=== PATIENT | male | born 1960 | race Caucasian/White ===

== ENCOUNTER 2023-11-15 16:33 | Emergency (ER) | payer BC, SELFPAY ==
--- NOTE | 2023-11-15 16:40 | ED.GENADULT ---
HPI - General Adult General Date Seen: 11/15/23 Chief complaint: Urogenital Problems, Male Stated complaint: Pain while urinating, fever Time Seen by Provider: 11/15/23 16:35 History of Present Illness HPI narrative: Very pleasant 63-year-old gentleman with a history of type 2 diabetes, distant history of lumbar spine injury with some intermittent low back pain, but otherwise healthy. No known history of prostate cancer or other malignancy. No active chemotherapy or immunosuppression. He presents to the ER today with symptoms of dysuria ongoing for the past 2-3 days now with developing urinary frequency (up to the bathroom every 30-60 minutes overnight for the past 12-18 hours) as well as some bilateral flank pain. He had fever and chills overnight with a T-max of 100.4? measured by a ear thermometer by his . No systemic illness. No body aches. No nausea or vomiting. No weakness. No cough. No chest pain. No shortness of breath. No sore throat. 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 Related Data Previous Rx's Medication Instructions Recorded cephalexin 500 mg capsule 500 mg PO BID #14 caps 11/15/23 phenazopyridine 100 mg tablet 100 mg PO TID PRN pain #14 tabs 11/15/23 (Pyridium) potassium chloride 20 mEq 20 meq PO DAILY #7 tabs 11/15/23 tablet,extended release Allergies Allergy/AdvReac Type Severity Reaction Status Date / Time lisinopril AdvReac Severe Cough Verified 11/15/23 16:45 Exam Narrative: Exam Narrative: Constitutional: Appears well-developed and well-nourished. Alert. Conversant. Non toxic. HENT: Head: Atraumatic. Nose: Nose normal. Mouth/Throat: Oral mucosa is clear and moist. no trismus. Eyes: Conjunctivae normal. EOM normal. Pupils equal, round, and reactive to light. No scleral icterus. Neck: Normal range of motion. Neck supple. No tracheal deviation present. Cardiovascular: Normal rate, regular rhythm. No gallop. No friction rub. No murmur heard. Symmetric radial artery pulses Pulmonary/Chest: Effort normal. No stridor. No respiratory distress. No wheezes. No rales. No rhonchi . No tenderness. Abdominal: Soft. Bowel sounds normal. No distension. No mass. No tenderness. No rebound. No guarding. Bilateral mild CVA tenderness. No suprapubic tenderness. Musculoskeletal: RUE: Normal range of motion. No tenderness. No deformity LUE: Normal range of motion. No tenderness. No deformity RLE: Normal range of motion. No edema. No tenderness. No deformity LLE: Normal range of motion. No edema. No tenderness. No deformity Lymph: No cervical adenopathy. Neurological: Alert and oriented to person, place, and time. Normal strength. CN II-VII intact. No sensory deficit. GCS eye subscore is 4. GCS verbal subscore is 5. GCS motor subscore is 6. Normal coordination Skin: Skin is warm and dry. No rash noted. No pallor. Normal capillary refill. Psychiatric: Normal mood. Normal affect. Const: Vital Signs, click to edit/add: Vital Signs - 24 hr 11/15/23 16:41 Temperature 97.3 F L Pulse Rate [Right Pulse Oximeter] 92 Respiratory Rate 16 Blood Pressure [Ri ght Upper Arm] 112/72 Pulse Oximetry 94 Oxygen Delivery Me thod Room Air Course Vital Signs Vital signs: Initial Vital Signs Temperature 97.3 F L 11/15/23 16:41 Temperature Source Temporal Artery Scan 11/15/23 16:41 Pulse Rate 92 11/15/23 16:41 Pulse Rhythm Regular 11/15/23 16:41 Pulse Strength 3+ Normal 11/15/23 16:41 Respiratory Rate 16 11/15/23 16:41 Blood Pressure 112/72 11/15/23 16:41 Blood Pressure Mean 85 11/15/23 16:41 Blood Pressure Position Sitting 11/15/23 16:41 Pulse Oximetry 94 11/15/23 16:41 Oxygen Delivery Method Room Air 11/15/23 16:41 Vital Signs Temperature 97.3 F L 11/15/23 16:41 Pulse Rate 92 11/15/23 16:41 Respiratory Rate 16 11/15/23 16:41 Blood Pressure 112/72 11/15/23 16:41 Pulse Oximetry 94 11/15/23 16:41 Oxygen Delivery Method Room Air 11/15/23 16:41 Temperature 97.3 F L 11/15/23 16:41 Pulse Rate 92 11/15/23 16:41 Respiratory Rate 16 11/15/23 16:41 Blood Pressure 112/72 11/15/23 16:41 Pulse Oximetry 94 11/15/23 16:41 Oxygen Delivery Method Room Air 11/15/23 16:41 Medications Administered Medications: Discontinued Medications Generic Name Dose Route Start Last Admin Trade Name Denq PRN Reason Stop Dose Admin Cephalexin HCl 500 mg 11/15/23 17:06 11/15/23 17:18 Cephalexin 500 Mg Capsule PO 11/15/23 17:07 500 mg ONCE ONE Administration Potassium Chloride 40 meq 11/15/23 17:38 11/15/23 18:05 Potassium Chloride 10 Meq Capsule Er PO 11/15/23 17:39 40 meq ONCE ONE Administration Medical Decision Making MDM Narrative Medical decision making narrative: This patient presents for evaluation of dysuria, urinary urgency and frequency as well as fever. This clinically is consistent with a urinary tract infection. Urinalysis confirms the infection. Given fever and associated back pain we did do a workup to look for possible comp of UTI such as pyelonephritis or associated kidney stone or renal failure. Fortunately stone protocol CT is reassuring and laboratory workup is reassuring. There is no clinical evidence of pyelonephritis, appendicitis, colitis, diverticulitis or any intraabdominal catastrophe. No obstructing kidney stones. No signs of urosepsis. Incidental note is made of hypokalemia on his labs. Supplemented here in the ER and will put him on a 7 day course of potassium and have him recheck with PCP next week to make sure his potassium is coming up. Unclear what is causing it, possibly chlorthalidone? The patient will be started on cephalexin 500 mg b.i.d. for 7 days for the infection. Urine culture pending Return if increasing pain, vomiting, fever, or inability to tolerate the oral antibiotic. Follow up with primary physician is indicated if not improving in 2-3 days. Lab Data Labs: Lab Results 11/15/23 11/15/23 Range/Units 16:48 17:05 WBC 10.88 (4.50-11.00) K/uL RBC 4.82 (4.30-5.90) m/uL Hgb 14.6 (13.5-17.5) gm/dL Hct 42.1 (37.0-53.0) % MCV 87 (80-100) fL MCH 30 (26-34) pg MCHC 35 (32-36) gm/dL RDW Coeff of Fahad 12.1 (11.5-15.5) % Plt Count 152 (140-440) K/uL Neut % (Auto) 78.0 H (42.0-72.0) % Lymph % (Auto) 11.8 L (20-44) % [place] % (Auto) 7.9 (0.0-11.0) % Eos % (Auto) 1.7 (0.0-7.0) % Baso % (Auto) 0.4 (0.0-3.0) % Neut # (Auto) 8.50 H (1.7-7.0) K/uL Lymph # (Auto) 1.30 (0.90-2.90) K/uL [place] # (Auto) 0.90 (0.00-0.90) K/UL Eos # (Auto) 0.19 (0.00-0.50) K/uL Baso # (Auto) 0.04 (0.00-0.30) K/uL Abs Immat Gran (auto) 0.02 (0.00-0.30) K/uL Imm/Tot Granulo (auto) 0.2 % Sodium 137 (135-149) mmol/L Potassium 2.9 L* (3.6-5.1) mmol/L Chloride 102 (96-114) mmol/L Carbon Dioxide 28 (20-32) mmol/L Anion Gap 7 (7-15) mEq/L BUN 21 (7-30) mg/dL Creatinine 1.1 (0.5-1.5) mg/dL Estimated Creat Clear 76.42 Estimated GFR 76 ml/min Glucose 138 H (60-115) mg/dL Calcium 9.4 (8.4-10.6) mg/dL Urine Color Yellow (Yellow) Urine Appearance Clear (Clear) Urine pH 5.5 (5.0-8.5) Ur Specific [place] 1.010 (1.000-1.030) Urine Protein Negative (Negative) Urine Glucose (UA) 3+ A (Negative) Urine Ketones Negative (Negative) Urine Blood Negative (Negative) Urine Nitrite Negative (Negative) Urine Bilirubin Negative (Negative) Urine Urobilinogen 0.2 (0.2-1.0) Ur Leukocyte Esterase Negative (Negative) Urine RBC 2-5 A (0-2) Urine WBC 5-10 A (0-5) Ur Squamous Epith Cells Few (None-Few) Urine Bacteria Few A (None) Imaging Data CT scan - abdomen: Attestation: I have reviewed the pertinent imaging results. Radiologist's impression: IMPRESSION: No acute intra-abdominal/pelvic abnormality including obstructive uropathy. Punctate nonobstructing bilateral renal stones. Moderate colonic stool burden. Discharge Plan Discharge Clinical Impression: Urinary tract infection, Acute hypokalemia Patient Disposition: Home, Self-Care Condition: Stable Instructions: Urinary Tract Infection in Men (DC), Hypokalemia (ED) Additional Instructions: As we discussed, please come back to the ER right away if you have worsening of your condition-especially if you have high fever, vomiting or dehydration, weakness, body aches, or if you have any other concerns. It will typically take 1-2 days for the antibiotics to start treating your infection. We will contact you if your urine culture grows and unusual kind of bacteria or if we need to change her antibiotics. Please follow-up with your regular doctors office (or come back to the ER) next week to have repeat labs and to recheck your potassium level. Your potassium was mildly low today. We will supplement this with a couple of days of potassium tablets. You can also try eating potassium rich foods such as bananas, avocados, tomato juice, or potato skins. Prescriptions: New cephalexin 500 mg capsule 500 mg PO BID Qty: 14 0RF phenazopyridine [Pyridium] 100 mg tablet 100 mg PO TID PRN (Reason: pain) Qty: 14 0RF potassium chloride 20 mEq tablet extended release 20 meq PO DAILY Qty: 7 2RF Follow Up/Referrals: Selvin Camacho MD [Primary Care Provider] - Stand Alone Forms: [employer] Info Instructions
[2023-11-15 16:41] VITALS: BP 112/72; PULSE 92; RESP 16; TEMP 36.3; O2SAT 94; BMI 39.7
[2023-11-15 16:52] LABS: Bilirubin Urine Negative (Negative); Blood Urine Negative (Negative); Color Urine Yellow (Yellow); Glucose Urine 3+ (Negative); Ketones Urine Negative (Negative); Leukocyte Esterase Urine Negative (Negative); Nitrite Urine Negative (Negative); Protein Urine Negative (Negative); Urobilinogen Urine 0.2 (0.2-1.0); pH Urine 5.5 (5.0-8.5)
--- NOTE | 2023-11-15 16:52 | CT_ITS ---
Patient: RYAN ARIAS Facility:?[facility] Patient ID:?[id number] Site Patient ID:?[id number]. Site :?[id number] Study:?CT-Abdomen/Pelvis W/O-11/15/2023 5:19:28 PM Ordering Physician:MARCY Final Report: INDICATION: Bilateral flank pain, pain with urinating. TECHNIQUE: CT abdomen and pelvis without contrast. COMPARISON: None. FINDINGS: Lower chest: Scattered atelectasis. Liver: Normal in size and attenuation. No suspicious masses. Gallbladder and bile ducts: No stones or inflammation. No biliary dilatation. Pancreas: Unremarkable. No mass or inflammation. Spleen: Normal in size. No masses. Adrenal glands: Normal in size. No nodules. Kidneys: Punctate nonobstructing renal stones. Normal in size. No suspicious masses, or hydronephrosis. GI tract: Moderate colonic stool burden. Normal in caliber. No sign of mass or inflammation. Vasculature: Abdominal aorta is normal in caliber. Lymph nodes: No lymphadenopathy. Peritoneum/Abdominal Wall: Tiny fat containing umbilical hernia. No sign of mass or infiltration. No free air or significant free fluid. Pelvis: Mild prostatomegaly. No pelvic masses. Bones: Unremarkable for age. IMPRESSION: No acute intra-abdominal/pelvic abnormality including obstructive uropathy. Punctate nonobstructing bilateral renal stones. Moderate colonic stool burden. Please note that all CT scans at this facility use dose modulation, iterative reconstruction, and/or weight-based dosing when appropriate to reduce radiation dose to as low as reasonably achievable. Dictated by Geronimo Landis MD @ 11/15/2023 6:17:19 PM Signed by:?Geronimo Landis MD @11/15/2023 6:17:19 PM (Electronic Signature)
[2023-11-15 16:57] LABS: Appearance Urine Clear (Clear)
[2023-11-15 17:01] LABS: Bacteria Urine Few; Squamous Epithelial Cell Urine Few (None-Few)
[2023-11-15 17:10] LABS: Basophils Absolute Auto 0.04 K/uL (0.00-0.30); Basophils Percent Auto 0.4 % (0.0-3.0); Eosinophils Absolute Auto 0.19 K/uL (0.00-0.50); Eosinophils Percent Auto 1.7 % (0.0-7.0); Hematocrit 42.1 % (37.0-53.0); Hemoglobin* 14.6 gm/dL (13.5-17.5); Immature Granulocytes Abs Auto 0.02 K/uL (0.00-0.30); Immature Granulocytes Pct Auto 0.2 %; Lymphocytes Percent Auto 11.8 % (20-44); Mean Corpuscular HGB Conc 35 gm/dL (32-36); Mean Corpuscular Hemoglobin 30 pg (26-34); Mean Corpuscular Volume 87 fL (80-100); Monocytes Percent Auto 7.9 % (0.0-11.0); Platelet Count* 152 K/uL (140-440); RDW Coefficient of Variation % 12.1 % (11.5-15.5); Red Blood Count 4.82 m/uL (4.30-5.90); White Blood Count* 10.88 K/uL (4.50-11.00)
[2023-11-15 17:17] LABS: Slide Review Reflex No
[2023-11-15] MEDS: cephALEXin 500 MG CAPSULE PO (17:18)
[2023-11-15 17:24] LABS: Chloride* 102 mmol/L (96-114); Sodium* 137 mmol/L (135-149)
[2023-11-15 17:27] LABS: Anion Gap 7 mEq/L (7-15); Blood Urea Nitrogen* 21 mg/dL (7-30); Calcium* 9.4 mg/dL (8.4-10.6); Carbon Dioxide* 28 mmol/L (20-32); Creatinine* 1.1 mg/dL (0.5-1.5); Est. Creatinine Clearance* 76.42; Estimated Glomerular Filt Rate 76 ml/min; Glucose* 138 mg/dL (60-115)
[2023-11-15 17:29] LABS: Potassium* 2.9 mmol/L (3.6-5.1)
[2023-11-15] MEDS: POTASSIUM CHLORIDE 10 MEQ CAPSULE ER 40 MEQ PO (18:05)
--- NOTE | 2023-11-19 08:35 | ED.GENADULT ---
HPI - General Adult General Chief complaint: Urogenital Problems, Male Stated complaint: Pain while urinating, fever Time Seen by Provider: 11/15/23 16:35 History of Present Illness HPI narrative: Addendum to recent ER visit from 11/16. Patient's urine culture came back growing E coli-pansensitive. Is on cephalexin 500 mg p.o. b.i.d. for 7 days. No need to change antibiotic Related Data Previous Rx's Medication Instructions Recorded cephalexin 500 mg capsule 500 mg PO BID #14 caps 11/15/23 phenazopyridine 100 mg tablet 100 mg PO TID PRN pain #14 tabs 11/15/23 (Pyridium) potassium chloride 20 mEq 20 meq PO DAILY #7 tabs 11/15/23 tablet,extended release Allergies Allergy/AdvReac Type Severity Reaction Status Date / Time lisinopril AdvReac Severe Cough Verified 11/15/23 16:45 PFSH PFSH Social History Smoking Status: Never smoker Do you use any of these nicotine containing products: None How often do you have a drink containing alcohol: never How often do you have six or more drinks on one occasion: Never AUDIT-C Alcohol total score: 0 Non-prescribed substance use: denies use service: No Course Vital Signs Vital signs: Initial Vital Signs Temperature 97.3 F L 11/15/23 16:41 Temperature Source Temporal Artery Scan 11/15/23 16:41 Pulse Rate 92 11/15/23 16:41 Pulse Rhythm Regular 11/15/23 16:41 Pulse Strength 3+ Normal 11/15/23 16:41 Respiratory Rate 16 11/15/23 16:41 Blood Pressure 112/72 11/15/23 16:41 Blood Pressure Mean 85 11/15/23 16:41 Blood Pressure Position Sitting 11/15/23 16:41 Pulse Oximetry 94 11/15/23 16:41 Oxygen Delivery Method Room Air 11/15/23 16:41 Vital Signs Temperature 97.3 F L 11/15/23 16:41 Pulse Rate 92 11/15/23 16:41 Respiratory Rate 16 11/15/23 16:41 Blood Pressure 112/72 11/15/23 16:41 Pulse Oximetry 94 11/15/23 16:41 Oxygen Delivery Method Room Air 11/15/23 16:41 Temperature 97.3 F L 11/15/23 16:41 Pulse Rate 92 11/15/23 16:41 Respiratory Rate 16 11/15/23 16:41 Blood Pressure 112/72 11/15/23 16:41 Pulse Oximetry 94 11/15/23 16:41 Oxygen Delivery Method Room Air 11/15/23 16:41 Medications Administered Medications: Discontinued Medications Generic Name Dose Route Start Last Admin Trade Name Freq PRN Reason Stop Dose Admin Cephalexin HCl 500 mg 11/15/23 17:06 11/15/23 17:18 Cephalexin 500 Mg Capsule PO 11/15/23 17:07 500 mg ONCE ONE Administration Potassium Chloride 40 meq 11/15/23 17:38 11/15/23 18:05 Potassium Chloride 10 Meq Capsule Er PO 11/15/23 17:39 40 meq ONCE ONE Administration Medical Decision Making Lab Data Labs: Lab Results 11/15/23 11/15/23 Range/Units 16:48 17:05 WBC 10.88 (4.50-11.00) K/uL RBC 4.82 (4.30-5.90) m/uL Hgb 14.6 (13.5-17.5) gm/dL Hct 42.1 (37.0-53.0) % MCV 87 (80-100) fL MCH 30 (26-34) pg MCHC 35 (32-36) gm/dL RDW Coeff of Fahad 12.1 (11.5-15.5) % Plt Count 152 (140-440) K/uL Neut % (Auto) 78.0 H (42.0-72.0) % Lymph % (Auto) 11.8 L (20-44) % [place] % (Auto) 7.9 (0.0-11.0) % Eos % (Auto) 1.7 (0.0-7.0) % Baso % (Auto) 0.4 (0.0-3.0) % Neut # (Auto) 8.50 H (1.7-7.0) K/uL Lymph # (Auto) 1.30 (0.90-2.90) K/uL [place] # (Auto) 0.90 (0.00-0.90) K/UL Eos # (Auto) 0.19 (0.00-0.50) K/uL Baso # (Auto) 0.04 (0.00-0.30) K/uL Abs Immat Gran (auto) 0.02 (0.00-0.30) K/uL Imm/Tot Granulo (auto) 0.2 % Sodium 137 (135-149) mmol/L Potassium 2.9 L* (3.6-5.1) mmol/L Chloride 102 (96-114) mmol/L Carbon Dioxide 28 (20-32) mmol/L Anion Gap 7 (7-15) mEq/L BUN 21 (7-30) mg/dL Creatinine 1.1 (0.5-1.5) mg/dL Estimated Creat Clear 76.42 Estimated GFR 76 ml/min Glucose 138 H (60-115) mg/dL Calcium 9.4 (8.4-10.6) mg/dL Urine Color Yellow (Yellow) Urine Appearance Clear (Clear) Urine pH 5.5 (5.0-8.5) Ur Specific [place] 1.010 (1.000-1.030) Urine Protein Negative (Negative) Urine Glucose (UA) 3+ A (Negative) Urine Ketones Negative (Negative) Urine Blood Negative (Negative) Urine Nitrite Negative (Negative) Urine Bilirubin Negative (Negative) Urine Urobilinogen 0.2 (0.2-1.0) Ur Leukocyte Esterase Negative (Negative) Urine RBC 2-5 A (0-2) Urine WBC 5-10 A (0-5) Ur Squamous Epith Cells Few (None-Few) Urine Bacteria Few A (None) Discharge Plan Discharge Clinical Impression: Urinary tract infection, Acute hypokalemia Patient Disposition: Home, Self-Care Condition: Stable Instructions: Urinary Tract Infection in Men (DC), Hypokalemia (ED) Additional Instructions: As we discussed, please come back to the ER right away if you have worsening of your condition-especially if you have high fever, vomiting or dehydration, weakness, body aches, or if you have any other concerns. It will typically take 1-2 days for the antibiotics to start treating your infection. We will contact you if your urine culture grows and unusual kind of bacteria or if we need to change her antibiotics. Please follow-up with your regular doctors office (or come back to the ER) next week to have repeat labs and to recheck your potassium level. Your potassium was mildly low today. We will supplement this with a couple of days of potassium tablets. You can also try eating potassium rich foods such as bananas, avocados, tomato juice, or potato skins. Prescriptions: New cephalexin 500 mg capsule 500 mg PO BID Qty: 14 0RF phenazopyridine [Pyridium] 100 mg tablet 100 mg PO TID PRN (Reason: pain) Qty: 14 0RF potassium chloride 20 mEq tablet extended release 20 meq PO DAILY Qty: 7 2RF Follow Up/Referrals: Selvin Camacho MD [Primary Care Provider] - Stand Alone Forms: [employer] Info Instructions
== END 2023-11-15 18:40 | disposition home or self-care (01) ==
PROVIDERS: Emergency Provider Emergency Medicine; PCP Family Medicine
DX: N39.0 Urinary tract infection, site not specified (principal); E87.6 Hypokalemia
CPT/HCPCS: 36415; 74176; 80048; 81001; 85025; 87086; 87186; 99281; 99283; A9270